=== PATIENT | female | born 2000 | race Caucasian/White ===

== ENCOUNTER 2021-02-05 20:03 | Emergency (ER) | payer OTHER ==
--- OUTSIDE RECORDS SUMMARY | 2021-02-05 20:06 | XMS REPORT | Continuity of Care Document ---
:2000 Author Organization [facility] t Address [address] [place] [address] Care Team Providers Name Role Phone Unavailable Unavailable Unavailable Problems This patient has no known problems. Allergies, Adverse Reactions, Alerts This patient has no known allergies or adverse reactions. Social History Smoking Status Start Date Stop Date Source Former Smoker [facility] Medications Ordered Filled Start Stop Current Ordering Indication Dosage Frequency Signature Comments Components Source Medication Medication Date Date Medication? Clinician (SIG) Name Name Loestrin Fe Loestrin Fe No 1 Q1D Loestrin [place] 1.5/30 1.5/30 Fe 1.5/30 da (28-Day) (28-Day) (28-Day) Epi scop 1.5 mg-30 1.5 mg-30 1.5 mg-30 al mcg (21)/75 mcg (21)/75 mcg H ealth mg (7) mg (7) (21)/75 mg Outre ac tablet Take tablet Take (7) tablet h 1 tablet 1 tablet Take 1 Progr am every day every day tablet by oral by oral every day route. route. by oral route. Vital Signs Vital Name Observation Time Observation Value Comments Source BMI (Body Mass 2020-05-20 00:00:00 31.7 kg/m2 [place] [facility] Index) [facility] BP Systolic 2020-05-20 00:00:00 113 mm[Hg] [place] [facility] Body Weight 2020-05-20 00:00:00 184.6 [lb_av] [place] [facility] BP Diastolic 2020-05-20 00:00:00 72 mm[Hg] [place] [facility] Height 2020-05-20 00:00:00 64 [in_i] [place] [facility] Procedures Procedure Date / Time Performing Clinician Source Performed US, transvaginal 2020-05-20 00:00:00 [facility] Myringotomy and [facility] Insertion of T Tube [facility] Outre a[facility] Tonsillectomy [facility] Plan of Care Planned Activity Planned Date Details Comments Source Diagnostic Test 2020-05-20 CBC w/ auto diff [place] [facility] Pending 00:00:00 [code = CBC w/ auto Health O utreach diff] Program Diagnostic Test 2020-05-20 TSH + free T4, [facility] Pending 00:00:00 serum [code = TSH + Health O utreach free T4, serum] Program Diagnostic Test 2020-05-20 iron + total [facility] Pending 00:00:00 iron-binding Health Outreach capacity (TIBC), Program serum [code = iron + total iron-binding capacity (TIBC), serum] Diagnostic Test 2020-05-20 insulin, serum [facility] Pending 00:00:00 [code = insulin, Health Outr each serum] Program Diagnostic Test 2020-05-20 PT/PTT, plasma [facility] Pending 00:00:00 [code = PT/PTT, Health Outre ach plasma] Program Diagnostic Test 2020-05-20 bacterial vaginosis [place] [facility] Pending 00:00:00 + vaginitis panel, [facility] [place] vaginal [code = Program bacterial vaginosis + vaginitis panel, vaginal] Encounters Start End Encounter Admission Attending Care Care Encounter Source Date/Time Date/Time Type Type Clinicians Facility Department ID 2020-05-20 2020-05-20 Jesusita ROSADO - [id number] [facility] 00:00:00 00:00:[address], [facility] TIER IN: [address] [facility] TRE[facility]URE Roque, MECHANICAL ENGINEERING LECTURER [facility], [facility] [id number] Bárbara valencia , Ph. Results This patient has no known results.
[2021-02-05 21:13] LABS: Absolute Lymphocytes (CBC) 1.8 K/uL (0.7-4.9); Basophils % 0.6 % (0-1.3); Hematocrit 33.5 % (36.0-45.0); MPV 7.9 fL (7.6-11.3); RBC Red Blood Cell Count 4.41 M/uL (3.86-4.86)
[2021-02-05 21:32] LABS: Albumin 4.3 g/dL (3.4-5.0); Bilirubin Direct 0.1 mg/dL (0-0.2); Bilirubin Total 0.4 mg/dL (0.2-1.0); Potassium 3.5 mmol/L (3.5-5.1)
[2021-02-05] MEDS ORDERED: NA CHLORIDE 0.9% 1,000 ML ONE ×2 (22:01→23:07)
[2021-02-05] MEDS ORDERED: PROMETHAZINE INJ 25 MG/ML AMP ONE (22:01)
[2021-02-05] MEDS ORDERED: KETOROLAC 30 MG/ML INJ ONE (22:01)
[2021-02-05 23:02] LABS: Urine Blood Trace-intact (Negative); Urine Glucose Negative (Negative); Urine Protein Negative (Negative); Urine Specific Gravity >=1.030 (1.005-1.030)
[2021-02-05] MEDS ORDERED: METOCLOPRAMIDE 10 MG/2mL INJ ONE (23:06)
[2021-02-05] MEDS ORDERED: DICYCLOMINE HCL 10 MG CAP ONE ×2 (23:53→23:55)
[2021-02-05 23:54] LABS: Urine Specific Gravity/Preg >1.030 (1.005-1.030)
--- NOTE | 2021-02-06 00:20 | EDPHYS ---
Physician Documentation [facility] Name: Delal Mojica Age: 20 yrs Sex: Female : 2000 Arrival Date: 02/05/2021 Time: 20:10 Bed 19 Private MD: ED Physician Anshu Parish HPI: 02/05 23:12 This 20 yrs old Female presents to ER via Wheelchair with complaints of kb Nausea/Vomiting, Abdominal Pain, HAS IBS. 23:12 The patient presents to the emergency department with nausea, vomiting. Onset: The kb symptoms/episode began/occurred 10 month(s) ago, and became worse yesterday. Possible causes: unknown. The symptoms are aggravated by nothing. The symptoms are alleviated by nothing. Associated signs and symptoms: Pertinent positives: abdominal pain, nausea, vomiting. Severity of symptoms: At their worst the symptoms were moderate severe in the emergency department the symptoms are unchanged. The patient has experienced similar episodes in the past, chronically. The patient has been recently seen by a physician: the ER physician, out of Town. PT reports n/v and abd pain since yesterday. States she has had this intermittently for 10 months. Denies abd tenderness. 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 Flu vaccine is not up to date. - Social history:: Smoking status: Reported history of juuling and/or vaping. ROS: 23:11 Abdomen/GI: Positive for abdominal pain, nausea and vomiting, Negative for diarrhea, kb constipation. 23:12 Constitutional: Negative for fever, chills, and weight loss. kb 23:12 All other systems are negative. Exam: 23:11 Constitutional: This is a well developed, well nourished patient who is awake, alert, kb and in no acute distress. Head/Face: Normocephalic, atraumatic. ENT: Moist Mucous membranes Cardiovascular: Regular rate and rhythm with a normal S1 and S2. No gallops, murmurs, or rubs. No pulse deficits. Respiratory: Respirations even and unlabored. No increased work of breathing, no retractions or nasal flaring. Abdomen/GI: Soft, non-tender. No distention Skin: Warm, dry with normal turgor. Normal color. MS/ Extremity: Pulses equal, no cyanosis. Neurovascular intact. Full, normal range of motion. Neuro: Awake and alert, GCS 15, oriented to person, place, time, and situation. Moves all extremities. Normal gait. Psych: Awake, alert, with orientation to person, place and time. Behavior, mood, and affect are within normal limits. Vital Signs: 20:37 BP 104 / 49; Pulse 65; Resp 15 S; Temp 97(TE); Pulse Ox 98% on R/A; Weight 72.57 kg ca1 (R); Height 5 ft. 4 in. (162.56 cm) (R); Pain 10/10; 23:27 BP 99 / 49; Pulse 52; Resp 16; Pulse Ox 99% ; [facility] 02/06 00:14 BP 96 / 55; Pulse 78; Resp 16; Pulse Ox 99% ; [facility] 02/05 20:37 Body Mass Index 27.46 (72.57 kg, 162.56 cm) ca1 MDM: 02/05 20:47 Patient medically screened. kb 23:11 Data reviewed: vital signs, nurses notes. Data interpreted: Pulse oximetry: on room air kb is 98 %. Interpretation: normal. Counseling: I had a detailed discussion with the patient and/or guardian regarding: the historical points, exam findings, and any diagnostic results supporting the discharge/admit diagnosis, lab results, the need for outpatient follow up, a business performance manager, to return to the emergency department if symptoms worsen or persist or if there are any questions or concerns that arise at home. ED course: PT has GI appt tomorrow at 1400. 02/06 00:18 ED course: Pt tolerated po intake and is ready to go home. Will keep appt with GI kb tomorrow. 02/05 20:49 Order name: Basic Metabolic Panel; Complete Time: 21:34 kb 02/05 20:49 Order name: CBC with Diff; Complete Time: 21:18 kb 02/05 20:49 Order name: Hepatic Function; Complete Time: 21:34 kb 02/05 20:49 Order name: Lipase; Complete Time: 21:34 kb 02/05 23:03 Order name: Urine Dipstick-Ancillary; Complete Time: 23:05 EDMS 02/05 23:05 Order name: Urine --Ancillary (enter results); Complete Time: 23:55 mw2 02/05 20:49 Order name: IV Saline Lock; Complete Time: 21:01 kb 02/05 20:49 Order name: Labs collected and sent; Complete Time: 21:01 kb 02/05 20:49 Order name: Urine Dipstick-Ancillary (obtain specimen); Complete Time: 23:16 kb 02/05 20:49 Order name: Urine Test (obtain specimen); Complete Time: 23:16 kb 02/05 23:12 Order name: PO challenge; Complete Time: 23:35 kb Administered Medications: 02/05 21:54 Drug: NS 0.9% 1000 ml Route: IV; Rate: 1000 ml; Site: right forearm; 22:55 Follow up: IV Status: Completed infusion 21:55 Drug: Phenergan (promethazine) 12.5 mg Route: IVP; Site: right forearm; 02/06 00:32 Follow up: Response: No adverse reaction 02/05 21:55 Drug: Ketorolac 15 mg Route: IVP; Site: right forearm; 02/06 00:31 Follow up: Response: No adverse reaction 02/05 22:54 Drug: Reglan (metoCLOPramide) 10 mg Route: IVP; Site: right forearm; 02/06 00:31 Follow up: Response: No adverse reaction 02/05 22:55 Drug: NS 0.9% 1000 ml Route: IV; Rate: 1000 ml; Site: right forearm; 02/06 00:32 Follow up: IV Status: Completed infusion 02/05 23:35 Drug: Bentyl (dicyclomine) 20 mg Route: PO; 02/06 00:31 Follow up: Response: No adverse reaction [facility] Disposition Summary: 02/06/21 00:19 Discharge Ordered Location: Home kb Condition: Stable kb Diagnosis - Nausea with vomiting, unspecified kb Followup: kb - With: Emergency Department - When: As needed - Reason: Worsening of condition Followup: kb - With: Private Physician - When: 2 - 3 days - Reason: Recheck today's complaints, Continuance of care, Re-evaluation by your physician Discharge Instructions: - Discharge Summary Sheet kb - Nausea and Vomiting, Adult, [id number] kb Forms: - Medication Reconciliation Form kb - Thank You Letter kb - Antibiotic Education kb - Prescription Opioid Use kb Prescriptions: - promethazine 25 mg Rectal suppository - insert 1 suppository by RECTAL route every 8 hours As needed; 10 suppository; kb Refills: 0, Product Selection Permitted Addendum: 02/08/2021 15:26 Co-signature as Attending Physician, Anshu Parish MD I agree with the assessment and t w4 plan of care. Signatures: Dispatcher [employer] EDMS Ludmila Mills, MANAGER MEDICARE-C MANAGER MEDICARE-Anshu Nelson MD MD tw4 Areli Swann RN RN ca1 Hank Woo RN RN jm8 Corrections: (The following items were deleted from the chart) 02/05 20:40 20:39 Allergies: No Known Allergies; ca1 ca1 23:12 23:11 Constitutional: Negative for fever, chills, and weight loss, ENT: Negative for kb injury, pain, and discharge, Respiratory: Negative for shortness of breath, cough, wheezing, and pleuritic chest pain, MS/Extremity: Negative for injury and deformity, Skin: Negative for injury, rash, and discoloration, Neuro: Negative for headache, weakness, numbness, tingling, and seizure, Psych: Negative for depression, anxiety, suicide ideation, homicidal ideation, and hallucinations, kb
--- NOTE | 2021-02-06 00:20 | ER ---
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 Been ca1 vomiting since, feels very week, dizzy and feels like passing out. Coronavirus screen: Client denies travel out of the [place] in the last 14 days. diarrhea, nausea, vomiting. Client presents with at least one sign or symptom that may indicate coronavirus-19. Standard/surgical mask placed on the client. Provider contacted for isolation considerations. Ebola Screen: Patient negative for fever greater than or equal to 101.5 degrees Fahrenheit, and additional compatible Ebola Virus Disease symptoms Patient denies exposure to infectious person. Patient denies travel to an Ebola-affected area in the 21 days before illness onset. No symptoms or risks identified at this time. Initial Sepsis Screen: Does the patient meet any 2 criteria? No. Patient's initial sepsis screen is negative. Does the patient have a suspected source of infection? No. Patient's initial sepsis screen is negative. Risk Assessment: Do you want to hurt yourself or someone else? Patient reports no desire to harm self or others. Onset of symptoms was February 05, 2021. 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 Flu vaccine is not up to date. - Social history:: Smoking status: Reported history of juuling and/or vaping. Screenin:03 Abuse screen: Denies threats or abuse. Denies injuries from another. Nutritional jm8 screening: No deficits noted. Tuberculosis screening: No symptoms or risk factors identified. Fall Risk None identified. Assessment: 21:02 General: Appears in no apparent distress. uncomfortable, Behavior is cooperative, jm8 anxious. Pain: Complains of pain in abdomen Pain currently is 10 out of 10 on a pain scale. Quality of pain is described as crampy, Pain began 2-3 days ago. Neuro: No deficits noted. Level of Consciousness is awake, alert, obeys commands, Oriented to person, place, time, situation. Cardiovascular: No deficits noted. Respiratory: No deficits noted. Airway is patent Trachea midline Respiratory effort is even, unlabored, Respiratory pattern is regular, symmetrical. GI: Abdomen is flat, Reports lower abdominal pain, upper abdominal pain, gaseousness, nausea, vomiting. : No deficits noted. No signs and/or symptoms were reported regarding the genitourinary system. EENT: No deficits noted. No signs and/or symptoms were reported regarding the EENT system. Derm: No deficits noted. No signs and/or symptoms reported regarding the dermatologic system. Musculoskeletal: No deficits noted. No signs and/or symptoms reported regarding the musculoskeletal system. Vital Signs: 20:37 BP 104 / 49; Pulse 65; Resp 15 S; Temp 97(TE); Pulse Ox 98% on R/A; Weight 72.57 kg ca1 (R); Height 5 ft. 4 in. (162.56 cm) (R); Pain 10/10; 23:27 BP 99 / 49; Pulse 52; Resp 16; Pulse Ox 99% ; 8 02/06 00:14 BP 96 / 55; Pulse 78; Resp 16; Pulse Ox 99% ; [facility] 02/05 20:37 Body Mass Index 27.46 (72.57 kg, 162.56 cm) ca1 ED Course: 02/05 20:10 Patient arrived in ED. cf2 20:37 Ludmila Mills FNP-C is PHCP. kb 20:37 Anshu Parish MD is Attending Physician. kb 20:39 Triage completed. ca1 20:39 Arm band placed on right wrist. ca1 21:04 Patient has correct armband on for positive identification. Bed in low position. Call Coco light in reach. Side rails up X2. Adult w/ patient. 21:20 Inserted saline lock: 20 gauge in right forearm, using aseptic technique. [facility] 02/06 00:31 No provider procedures requiring assistance completed. IV discontinued, intact, 8 bleeding controlled, No redness/swelling at site. Administered Medications: 02/05 21:54 Drug: NS 0.9% 1000 ml Route: IV; Rate: 1000 ml; Site: right forearm; [facility] 22:55 Follow up: IV Status: Completed infusion 21:55 Drug: Phenergan (promethazine) 12.5 mg Route: IVP; Site: right forearm; 8 02/06 00:32 Follow up: Response: No adverse reaction [facility] 02/05 21:55 Drug: Ketorolac 15 mg Route: IVP; Site: right forearm; 02/06 00:31 Follow up: Response: No adverse reaction 02/05 22:54 Drug: Reglan (metoCLOPramide) 10 mg Route: IVP; Site: right forearm; 02/06 00:31 Follow up: Response: No adverse reaction 02/05 22:55 Drug: NS 0.9% 1000 ml Route: IV; Rate: 1000 ml; Site: right forearm; 8 02/06 00:32 Follow up: IV Status: Completed infusion [facility] 02/05 23:35 Drug: Bentyl (dicyclomine) 20 mg Route: PO; 02/06 00:31 Follow up: Response: No adverse reaction [facility] Outcome: 00:19 Discharge ordered by . regan 00:31 Discharged to home ambulatory, with family. 00:31 Condition: good 00:31 Discharge instructions given to patient, family, Instructed on discharge instructions, follow up and referral plans. medication usage, Demonstrated understanding of instructions, follow-up care, medications, Prescriptions given X 1. 00:32 Patient left the ED. jm8 Signatures: Ludmila Mills FNP-C FNP-Areli Hanson RN RN ca1 Percy Pro cf2 Hank Woo RN RN jm8 Corrections: (The following items were deleted from the chart) 02/05 20:40 20:39 Allergies: No Known Allergies; ca1 ca1
[2021-02-06 01:31] VITALS: TEMP 97
[2021-02-06 01:35] VITALS: O2SAT 99
[2021-02-06 01:38] VITALS: BP 96/55
== END 2021-02-06 00:32 | disposition home or self-care (01) ==
LOC: ER 20:03
DX: R11.2 Nausea with vomiting, unspecified (principal); Z88.8 Allergy status to other drugs, medicaments and biological substances
CPT/HCPCS: 96361; 85025; 80048; 36415; 81025; 80076; 81003; 83690; 96375; 96374; 99283; J2765; J2550; J7030 ×2

== ENCOUNTER 2023-12-07 07:57 | Emergency (ER) | payer SELFPAY ==
--- OUTSIDE RECORDS SUMMARY | 2023-12-07 08:00 | XMS REPORT | Continuity of Care Document ---
Author Name Unknown Address [address] [place] [address] [facility] thconnect Address [address] [place] [address] Care Team Providers Care [employer] Director Name Role Phone Vi Hernandez Primary Care Physician VI HERNANDEZ Attending Clinician Unavailable Shield Attending Clinician Unavailable AALIYAH Attending Clinician Unavailable NANCY DAHL Attending Clinician Unavailable OTTONIEL PARKER Attending Clinician UnavailNEDA Shaw Attending Clinician Unavailable Neda Schafer NP Attending Clinician [phone] THOR OLVERA Attending Clinician Unavail able Jose Enrique Attending Clinician Unavailable STEPHANIE GALLO Attending Clinician Unavailable ELSA WEAVER Attending Clinician Unavailable VICK MOY Attending Clinician Unavailable JAMEEL MATHEWS Attending Clinician Unavaila ble Shield Admitting Clinician Unavailable AALIYAH Admitting Clinician Unavailable Mau_L Admitting Clinician Unavailable Payers Payer Name Policy Type Policy Number Effective Date Expirati on Date Source [facility] [id number] 2020 00:00[facility]00 [facility] [place] (MEDICAID HMO) [id number] 2020 00:00:00 [facility] [id number] 00:00:00 Problems Condition Name Condition Details Condition Category Status Onset Date Resolution Date Last Treatment Date Treating Clinician Comments Source Anxiety Anxiety Problem Active 11-17 00:00: 00 [facility] Outre [facility] Program No known active problems No known active problems Disease [facility] Allergies, Adverse Reactions, Alerts Allergy Name Allergy Type Status Severity Reaction(s) Onset Date Inactive Date Treating Clinician Comments Source Augmenti n Drug Allergy Active 09-02 00:00: 00 [facility] AMOXICIL CHASE-POT CLAVULAN ATE DRUG Active Unknown-Cmnt 2020-08 00:00: 00 [facility] Amoxicil chase-Pot Clavulan ate Propensi ty to adverse reaction s Active Unknown - See comments 2020-08 00:00: 00 [facility] Augmenti n Allergy to substanc e Active [facility] Social History Social Habit Start Date Stop Date Quantity Comments Source Exposure to SARS-CoV-2 (event) Not sure [facility] Sex Assigned At 2000 00:00:00 2000 00:00:00 [facility] Smoking Status Start Date Stop Date Source Never Smoker [facility] Former Smoker [facility] Outreach Program Unknown if ever smoked [facility] Medications Ordered Medication Name Filled Medication Name Start Date Stop Date Current Medication? Ordering Clinician Indication Dosage Frequency Signature (SIG) Comments Components Source doxycycline hyclate 100 mg capsule 2020-08 00:00: 00 08-10 05:59 :00 No [id number] 100mg Take 1 capsule by mouth 2 (two) times daily for 10 days. [facility] hydroxyzine HCl 10 mg tablet TAKE ONE (1) TABLET BY MOUTH THREE TIMES A DAY NEEDED. hydroxyzine HCl 10 mg tablet TAKE ONE (1) TABLET BY MOUTH THREE TIMES A DAY NEEDED. No hydroxyzin e HCl 10 mg tablet TAKE ONE (1) TABLET BY MOUTH THREE TIMES A DAY NEEDED. [facility] Paxil 20 mg tablet Take 1 tablet every day by oral route. Paxil 20 mg tablet Take 1 tablet every day by oral route. No 1 Q1D Paxil 20 mg tablet Take 1 tablet every day by oral route. [facility] dicyclomine 10 mg capsule Take 1 capsule 4 times a day by oral route as needed. dicyclomine 10 mg capsule Take 1 capsule 4 times a day by oral route as needed. No 1capsul e(s) QID dicyclomin e 10 mg capsule Take 1 capsule 4 times a day by oral route as needed. [facility] Prilosec Prilosec No Prilosec [facility] Vital Signs Vital Name Observation Time Observation Value Comments S ource BMI (Body Mass Index) 2023-11-15 00:00:00 27.1 kg/m2 [facility] BP Systolic 2023-11-15 00:00:00 116 mm[Hg] [facility] BP Diastolic 2023-11-15 00:00:00 65 [facility]Hg[facility] Height 2023-11-15 00:00:00 64 [in_i] [facility] Body Weight 2023-11-15 00:00:00 2528 [oz_av] [facility] BP Diastolic 2022-01-06 00:00:00 66 mm[Hg] [facility] Height 2022-01-06 00:00:00 64 [in_i] [facility] BMI (Body Mass Index) 2022-01-06 00:00:00 25.1 kg/m2 [facility] BP Systolic 2022-01-06 00:00:00 127 mm[Hg] [facility] Body Weight 2022-01-06 00:00:00 2336 [oz_av] [facility] BP Diastolic 2021-11-17 00:00:00 57 mm[Hg] [facility] Height 2021-11-17 00:00:00 63.99 [in_i] [facility] BMI (Body Mass Index) 2021-11-17 00:00:00 25.7 kg/m2 [facility] BP Systolic 2021-11-17 00:00:00 95 mm[Hg] [facility] Body Weight 2021-11-17 00:00:00 149.6 [lb_av] [facility] BP Diastolic 2021-10-29 00:00:00 59 mm[Hg] [facility] Height 2021-10-29 00:00:00 64 [in_i] [facility] BMI (Body Mass Index) 2021-10-29 00:00:00 25.6 kg/m2 [facility] BP Systolic 2021-10-29 00:00:00 116 mm[Hg] [facility] Body Weight 2021-10-29 00:00:00 2384 [oz_av] [facility] BP Diastolic 2021-09-10 00:00:00 56 mm[Hg] [facility] Height 2021-09-10 00:00:00 64 [in_i] [facility] BMI (Body Mass Index) 2021-09-10 00:00:00 27.1 kg/m2 [facility] BP Systolic 2021-09-10 00:00:00 101 mm[Hg] [facility] Body Weight 2021-09-10 00:00:00 2528 [oz_av] [facility] Systolic blood pressure 2021-07-30 18:50:00 113 mm[Hg] [facility] Diastolic blood pressure 2021-07-30 18:50:00 69 mm[Hg] [facility] Heart rate 2021-07-30 18:50:00 72 /min [facility] Body temperature 2021-07-30 18:50:00 36.83 [facility] Respiratory rate 2021-07-30 18:50:00 17 /min [facility] Oxygen saturation in Arterial blood by Pulse oximetry 2021-07-30 18:50:00 100 /min [facility] acute hospital BP Diastolic 2021-06-24 00:00:00 65 mm[Hg] [facility] Height 2021-06-24 00:00:00 53 [in_i] [facility] BMI (Body Mass Index) 2021-06-24 00:00:00 39.9 kg/m2 [facility] BP Systolic 2021-06-24 00:00:00 108 mm[Hg] [facility] Body Weight 2021-06-24 00:00:00 2553 [oz_av] [facility] BP Diastolic 2021-05-26 00:00:00 55 mm[Hg] [facility] Height 2021-05-26 00:00:00 53 [in_i] [facility] BMI (Body Mass Index) 2021-05-26 00:00:00 39.6 kg/m2 [facility] BP Systolic 2021-05-26 00:00:00 103 mm[Hg] [facility] Body Weight 2021-05-26 00:00:00 2532 [oz_av] [facility] BP Diastolic 2021-03-26 00:00:00 64 mm[Hg] [facility] Height 2021-03-26 00:00:00 53 [in_i] [facility] BMI (Body Mass Index) 2021-03-26 00:00:00 39.8 kg/m2 [facility] BP Systolic 2021-03-26 00:00:00 108 mm[Hg] [facility] Body Weight 2021-03-26 00:00:00 2544 [oz_av] [facility] BP Diastolic 2021-02-12 00:00:00 73 mm[Hg] [facility] Height 2021-02-12 00:00:00 53 [in_i] [facility] BMI (Body Mass Index) 2021-02-12 00:00:00 38.1 kg/m2 [facility] BP Systolic 2021-02-12 00:00:00 122 mm[Hg] [facility] Body Weight 2021-02-12 00:00:00 2438 [oz_av] [facility] BP Diastolic 2021-02-04 00:00:00 63 mm[Hg] [facility] Height 2021-02-04 00:00:00 53 [in_i] [facility] BMI (Body Mass Index) 2021-02-04 00:00:00 40 kg/m2 [facility] BP Systolic 2021-02-04 00:00:00 123 mm[Hg] [facility] Body Weight 2021-02-04 00:00:00 2560 [oz_av] [facility] BP Diastolic 2020-05-20 00:00:00 72 mm[Hg] [facility] Height 2020-05-20 00:00:00 64 [in_i] [facility] BMI (Body Mass Index) 2020-05-20 00:00:00 31.7 kg/m2 [facility] BP Systolic 2020-05-20 00:00:00 113 mm[Hg] [facility] Body Weight 2020-05-20 00:00:00 184.6 [lb_av] [facility] Procedures Procedure Date / Time Performed Performing Clinician Source XR, hand, 3 or more view 2021-10-29 00:00:00 [facility] POCT TEST 2021-07-30 19:36:00 Neda Schafer [facility] NOTICE OF PRIVACY PRACTICES 2021-07-30 18:38:45 Doctor Unassigned, [place] [facility] CONSENT/REFUSAL FOR DIAGNOSI S AND TREATMENT 2021-07-30 18:38:30 Doctor Unassigned, [place] [facility] Capsule Endoscopy of Small Intestine 2021-02-28 00:00:00 [facility] Colonoscopy 2021-02-10 00:00:00 [facility] Colonoscopy 2021-02-07 00:00:00 [facility] Esophagogastroduodenoscopy 2021-02-07 00:00:00 [facility] US, gallbladder 2021-02-04 [facility], transvaginal 2020-05-20 00:00:00 [facility] Endoscopy 2002-02-07 00:00:00 [facility] Myringotomy and Insertion of T Tube [facility] T[facility]illectomy [facility] Plan of Care Planned Activity Planned Date Details Comments Source Diagnostic Test Pending 2023-11-15 00:00:00 CMP, serum or plasma [code = CMP, serum or plasma] [facility] Diagnostic Test Pending 2023-11-15 00:00:00 lipid panel, serum [code = lipid panel, serum] [facility] Diagnostic Test Pending 2023-11-15 00:00:00 CBC w/ auto diff [code = CBC w/ auto diff] [facility] Diagnostic Test Pending 2023-11-15 00:00:00 TSH, serum or plasma [code = TSH, serum or plasma] [facility] Diagnostic Test Pending 2023-11-15 00:00:00 urinalysis complete, reflex culture [code = urinalysis complete, reflex culture] [facility] Instructions [facility] Encounters Start Date/Time End Date/Time Encounter Type Admission Type Attending Clinicians Care Facility Care Department Encounter ID Source 2023-05-20 14:17:19 [facility] [id number] [facility] 2023-04-28 23:28:21 Inpatient [facility] [id number] [facility] 2023-04-26 10:07:06 [facility] [id number] [facility] 2023-04-21 09:14:39 [facility] [id number] [facility] 2023-04-01 10:48:58 Inpatient [facility] [id number] [facility] 2023-03-30 14:07:40 Inpatient MARIANNA CABRAL [id number] [facility] 2023-03-26 13:00:48 Inpatient MARIANNA CABRAL [id number] [facility] 2023-11-15 11:54:00 2023-11-15 11:54:00 Outpatient VI CARLSON [facility] [id number] [facility] 2023-11-15 00:00:00 2023-11-15 00:00:00 Vi Hernandez, SKIRT MAKER: [address], [address], [place] [address] , Ph. Regino [facility] [id number] [facility] 2023-11-12 00:00:00 2023-11-12 00:00:00 Outpatient LISTER_MELI [facility] [id number] [facility] 2023-11-12 00:00:00 2023-11-12 00:00:00 [facility] [id number] [facility] 2023-03-26 09:59:00 2023-03-26 09:59:00 Outpatient SELF/OTHER INDIVIDUAL ^SELF/OTHE R INDIVIDUAL ^^1^SELF/O THER INDIVIDUAL ^^1 NANCY DAHL [id number] [facility] 2022-06-05 12:39:00 2022-06-05 15:35:00 Emergency ER OTTONIEL PARKER [facility] [id number] [facility] 2022-01-06 11:16:00 2022-01-06 11:16:00 Outpatient Shield [facility] [id number] [facility] 2022-01-06 00:00:00 2022-01-06 00:00:00 Vi Hernandez, SKIRT MAKER: [address], [place] [address] , Ph. [facility] [id number] [facility] 2021-11-17 05:31:00 2021-11-17 05:31:00 Outpatient LISTER_MELI [facility] [id number] [facility] 2021-11-17 00:00:00 2021-11-17 00:00:00 Adolfo Judd MD: [id number], [address], [place] [address] , Ph. [facility] [id number] [facility] 2021-10-31 09:33:00 2021-10-31 09:33:00 Outpatient LISTER_MELI [facility] [id number] [facility] 2021-10-31 09:33:00 2021-10-31 09:33:00 Outpatient LISTER_MELI [facility] [id number] [facility] 2021-10-29 13:57:00 2021-10-29 13:57:00 Outpatient VI [facility]LSON [facility] [id number] [facility] 2021-10-29 02:01:00 2021-10-29 02:01:00 [place] [id number] [facility] 2021-10-29 02:01:00 2021-10-29 02:01:00 [place] [id number] [facility] 2021-10-29 00:00:00 2021-10-29 00:00:00 Vi Hernandez NP: [address], [place] [address] , Ph. [facility] [id number] [facility] 2021-10-24 11:50:00 2021-10-24 11:50:00 [place] [id number] [facility] 2021-09-10 11:54:00 2021-09-10 11:54:00 Outpatient Shield [facility] [id number] [facility] 2021-09-10 00:00:00 2021-09-10 00:00:00 Vi Hernandez, SKIRT MAKER: [address], [place] [address] , Ph. [facility] [id number] [facility] 2021-07-30 12:57:00 2021-07-30 14:58:00 Emergency X NEDA SCHAFER [facility] E[facility] [id number] [facility] 2021-07-30 12:57:00 2021-07-30 14:58:00 Emergency Neda Schafer [facility] [id number] [facility] 2021-06-24 01:29:00 2021-06-24 01:29:00 Outpatient Shield [facility] [id number] [facility] 2021-06-24 00:00:00 2021-06-24 00:00:00 Vi Hernandez, SKIRT MAKER: [address], [place] [address] , Ph. [facility] [id number] [facility] 2021-05-26 01:31:00 2021-05-26 01:31:00 [facility] [id number] [facility] 2021-05-26 00:00:00 2021-05-26 00:00:00 Vi Hernandez, SKIRT MAKER: [address], [place] [address] , Ph. [facility] [id number] [facility] 2021-03-26 11:41:00 2021-03-26 11:41:00 Outpatient Shield MMG MMG [id number] [facility] 2021-03-26 00:00:00 2021-03-26 00:00:00 Vi Hernandez, SKIRT MAKER: [address], [place] [address] , Ph. [facility] [id number] [facility] 2021-02-12 05:42:00 2021-02-12 05:42:00 Outpatient Shield MMG MMG [id number] [facility] 2021-02-12 01:06:00 2021-02-12 01:06:00 Outpatient Shield MMG MMG [id number] [facility] 2021-02-12 00:00:00 2021-02-12 00:00:00 Vi Hernandez, SKIRT MAKER: [address], [place] [address] , Ph. [facility] [id number] [facility] 2021-02-07 11:09:00 2021-02-07 11:09:00 Outpatient Shield MMG MMG [id number] [facility] 2021-02-06 05:32:00 2021-02-06 05:32:00 Outpatient Shield MMG MMG [id number] [facility] 2021-02-04 15:09:00 2021-02-04 18:46:00 Emergency ER THOR OLVERA [facility] [id number] [facility] 2021-02-04 06:11:00 2021-02-04 06:11:00 Outpatient Shield MMG MMG [id number] [facility] 2021-02-04 00:00:00 2021-02-04 00:00:00 Vi Hernandez, SKIRT MAKER: [address], [place] [address] , [facility] [id number] [facility] 2021-01-23 02:57:00 2021-01-23 02:57:00 Outpatient Shield [facility] [id number] [facility] 2020-05-28 05:21:00 2020-05-28 05:21:00 [id number] 2020-05-20 05:07:00 2020-05-20 05:07:00 Outpatient MARIA ISABEL_MAYA [facility] [id number] [facility] 2020-05-20 00:00:00 2020-05-20 00:00:00 Jesusita Dickey, SKIRT MAKER: [address], [place] [address] , Ph. [facility] SHIATSU THERAPIST [id number] [facility] 2017-05-16 18:22:00 2017-05-16 20:25:00 Emergency ER STEPHANIE GALLO [facility] [id number] [facility] 2017-03-07 14:34:00 2017-03-07 18:27:00 Emergency ER ELSA WEAVER [facility] [id number] [facility] 2015-12-24 08:13:00 2015-12-24 10:27:00 Emergency ER VICK MOY [facility] [id number] [facility] 2013-03-30 06:23:00 2013-03-30 06:23:00 Outpatient JAMEEL DORAN [facility] [id number] [facility] Results Test Description Test Time Test Comments Results Result Co mments [id number] [facility]:00:00* Test Item Value Reference Range Interpretation Comme nts quest collection (test code = quest collection) quest [facility] [id number] 00:00:00* Test Item Value Reference Range Interpretation Comme nts quest collection (test code = quest collection) [facility] W Auto Differential panel - [id number] 12:34:00 * Test Item Value Reference Range Interpretation Comme [facility] white blood count (test code = white blood count) 9.9 K/uL 4.0-11.5 red blood count (test code = red blood count) 4.83 M/uL 3.80-5.20 hemoglobin (test code = hemoglobin) 12.0 g/dL 10.5-15.7 hematocrit (test code = hematocrit) 38.0 % 34.0-50.0 MCV [Entitic volume] (test c ode = 77684-4) 78.7 fL 86-100 L mean corpuscular hemoglobin (test code = mean corpuscular hemoglobin) 24.6 pg 26.2-33.4 L mean corpuscular HGB conc (t est code = mean corpuscular HGB conc) 31.3 g/dL 30-34 red cell distribution width (test code = red cell distribution width) 15.8 % 12.0-15.5 H platelet count (test code = platelet count) 326 K/uL 165-450 mean platelet volume (test c ode = mean platelet volume) 10.2 fL 9.4-12.6 Segmented neutrophils/100 leukocytes in Blood (test code = 35044-7) 81.1 % 44.4-80.1 H Immature granulocytes [#/vol ume] in Blood (test code = 01070-9) 0.0 K/uL 0.0-0.03 lymphocyte% (test code = lymphocyte%) 13.5 % 10.0-50.0 mono % (test code = mono %) 3.7 % 3.6-12.0 eos % (test code = eos %) 0.9 % 0.0-5.4 Basophils/100 leukocytes in Unspecified specimen (test code = 85342-6) 0.6 % 0.1-1.2 Band form neutrophils [#/vol ume] in Blood (test code = 32455-2) 8.13 K/uL 1.56-6.13 H Lymphocytes [#/volume] in Unspecified specimen by Automated count (test code = 92853-1) 1.4 K/uL 1.18-3.74 mono # (test code = mono #) 0.37 K/uL 0.24-0.86 eos # (test code = eos #) 0.09 K/uL 0.04-0.36 basophil # (test code = baso esau #) 0.06 K/uL 0.01-0.08 NRBC% (test code = NRBC%) 0 /100 WBC 0-0.2 NRBC# (test code = NRBC#) 0 K/uL [facility] 2000 panel - Serum or Plasma 2021-02-04 12:34:00* Test Item Value Reference Range Interpretation Comme nts Glucose [Mass/volume] in Ser um or Plasma (test code = 2345-7) 116 mg/dL 74-106 H Urea nitrogen [Mass/volume] in Serum or Plasma (test code = 3094-0) 8 mg/dL 6-20 osmolality calculated,serum (test code = osmolality calculated,serum) 273 mOsm/kg 280-300 L creatinine (test code = creatinine) 0.7 mg/dL 0.50-0.90 glomerular filtration rate ( test code = glomerular filtration rate) >60.00 Urea nitrogen/Creatinine [Ma ss Ratio] in Serum or Plasma (test code = 3097-3) 11.4 12-20 L sodium level (test code = so dium level) 137 mmol/L 135-145 potassium level (test code = potassium level) 4.0 mmol/L 3.5-5.2 chloride level (test code = chloride level) 101 mmol/L 98-108 CO2 (test code = CO2) 24 mmol/L 21-32 anion gap (test code = anion gap) 16.0 mEq/L 12-20 calcium level (test code = calcium level) 10.0 mg/dL 8.6-10.0 total protein (test code = t otal protein) 8.1 g/dL 6.6-8.7 albumin (test code = albumin) 5.0 g/dL 3.5-5.2 globulin (test code = globulin) 3.1 gm/dL A/G ratio (test code = A/G ratio) 1.6 >1.0 bilirubin,total (test code = bilirubin,total) 0.4 mg/dL 0.0-1.2 AST/SGOT (test code = AST/SGOT) 15 U/L 15-32 Alanine aminotransferase [Enzymatic activity/volume] in Serum or Plasma (test code = 1742-6) 10 U/L 0-33 Alkaline phosphatase [Enzyma tic activity/volume] in Serum or Plasma (test code = 6768-6) 97 U/L 35-105 [facility] 1996 panel - Serum or [id number] 12:34:00* Test Item Value Reference Range Interpretation Comme nts cholesterol level (test code = cholesterol level) 193 mg/dL 150-200 triglycerides level (test co de = triglycerides level) 71 mg/dL <150 HDL cholesterol (test code = HDL cholesterol) 39 mg/dL >65 L LDL cholesterol direct (test code = LDL cholesterol direct) 143 mg/dL <100 H cholesterol risk ratio (test code = cholesterol risk ratio) 4.948 [facility] W Auto Differential panel - [id number] 12:34:00 * Test Item Value Reference Range Interpretation Comme nts white blood count (test code = white blood count) 9.9 K/uL 4.0-11.5 red blood count (test code = red blood count) 4.83 M/uL 3.80-5.20 hemoglobin (test code = hemoglobin) 12.0 g/dL 10.5-15.7 hematocrit (test code = hematocrit) 38.0 % 34.0-50.0 MCV [Entitic volume] (test c ode = 67254-9) 78.7 fL 86-100 L mean corpuscular hemoglobin (test code = mean corpuscular hemoglobin) 24.6 pg 26.2-33.4 L mean corpuscular HGB conc (t est code = mean corpuscular HGB conc) 31.3 g/dL 30-34 red cell distribution width (test code = red cell distribution width) 15.8 % 12.0-15.5 H platelet count (test code = platelet count) 326 K/uL 165-450 mean platelet volume (test c ode = mean platelet volume) 10.2 fL 9.4-12.6 Segmented neutrophils/100 leukocytes in Blood (test code = 81423-6) 81.1 % 44.4-80.1 H Immature granulocytes [#/vol ume] in Blood (test code = 37406-6) 0.0 K/uL 0.0-0.03 lymphocyte% (test code = lymphocyte%) 13.5 % 10.0-50.0 mono % (test code = mono %) 3.7 % 3.6-12.0 eos % (test code = eos %) 0.9 % 0.0-5.4 Basophils/100 leukocytes in Unspecified specimen (test code = 98474-1) 0.6 % 0.1-1.2 Band form neutrophils [#/vol ume] in Blood (test code = 63383-1) 8.13 K/uL 1.56-6.13 H Lymphocytes [#/volume] in Unspecified specimen by Automated count (test code = 38573-6) 1.4 K/uL 1.18-3.74 mono # (test code = mono #) 0.37 K/uL 0.24-0.86 eos # (test code = eos #) 0.09 K/uL 0.04-0.36 basophil # (test code = baso esau #) 0.06 K/uL 0.01-0.08 NRBC% (test code = NRBC%) 0 /100 WBC 0-0.2 NRBC# (test code = NRBC#) 0 K/uL [facility]Com[facility] 2000 [facility] - Serum or Plasma 2021-02-04 12:34:00* Test Item Value Reference Range Interpretation Comme nts Glucose [Mass/volume] in Ser um or Plasma (test code = 2345-7) 116 mg/dL 74-106 H Urea nitrogen [Mass/volume] in Serum or Plasma (test code = 3094-0) 8 mg/dL 6-20 osmolality calculated,serum (test code = osmolality calculated,serum) 273 mOsm/kg 280-300 L creatinine (test code = creatinine) 0.7 mg/dL 0.50-0.90 glomerular filtration rate ( test code = glomerular filtration rate) >60.00 Urea nitrogen/Creatinine [Ma ss Ratio] in Serum or Plasma (test code = 3097-3) 11.4 12-20 L sodium level (test code = so dium level) 137 mmol/L 135-145 potassium level (test code = potassium level) 4.0 mmol/L 3.5-5.2 chloride level (test code = chloride level) 101 mmol/L 98-108 CO2 (test code = CO2) 24 mmol/L 21-32 anion gap (test code = anion gap) 16.0 mEq/L 12-20 calcium level (test code = calcium level) 10.0 mg/dL 8.6-10.0 total protein (test code = t otal protein) 8.1 g/dL 6.6-8.7 albumin (test code = albumin) 5.0 g/dL 3.5-5.2 globulin (test code = globulin) 3.1 gm/dL A/G ratio (test code = A/G ratio) 1.6 >1.0 bilirubin,total (test code = bilirubin,total) 0.4 mg/dL 0.0-1.2 AST/SGOT (test code = AST/SGOT) 15 U/L 15-32 Alanine aminotransferase [Enzymatic activity/volume] in Serum or Plasma (test code = 1742-6) 10 U/L 0-33 Alkaline phosphatase [Enzyma tic activity/volume] in Serum or Plasma (test code = 6768-6) 97 U/L 35-105 [facility]Lip[facility] 1996 panel - Serum or [id number] 12:34:00* Test Item Value Reference Range Interpretation Comme nts cholesterol level (test code = cholesterol level) 193 mg/dL 150-200 triglycerides level (test co de = triglycerides level) 71 mg/dL <150 HDL cholesterol (test code = HDL cholesterol) 39 mg/dL >65 L LDL cholesterol direct (test code = LDL cholesterol direct) 143 mg/dL <100 H cholesterol risk ratio (test code = cholesterol risk ratio) 4.948 [facility] Centerquest [id number] 00:00:00* Test Item Value Reference Range Interpretation Comme [facility] quest collection (test code = quest collection) quest [facility] CenterDifferential panel, method unspecified - [id number] 00:00:00NeutrophilsBandLymphocyteAtypical LymphMonocyteEosinophilBasophilMetamyelocyteAbs Neutrophil Count (Man)Abs Lymph Count (Man)Abs Monocyte Count (Man)Abs Eosinophil Count (Man)Abs Basophil Count (Man)Platelet EstimatePlatelet MorphologyHypochromasiaPoikilocytosisAnisocytosisMacrocytosisToxic Granulat ionSmudge CellsAdventhealth Rollins Brooka Medical GroupAmylase [Enzymatic activity/volume] in Serum or [id number] 00:00:00* Test Item Value Reference Range Interpretation Comme nts Amylase [Enzymatic activity/ volume] in Serum or Plasma (test code = 1798-8) 91 U/L 28-100 [facility] GroupLipase [Enzymatic activity/volume] in Serum or Plasma 2021-02-04 00:00:00* Test Item Value Reference Range Interpretation Comme nts lipase (test code = lipase) 28 U/L 13-60 [facility] CenterThyrotropin [Units/volume] in Serum or [id number] 00:00:00* Test Item Value Reference Range Interpretation Comme nts Thyrotropin [Units/volume] i n Serum or Plasma (test code = 3016-3) 1.47 uIU/mL 0.36-3.74 [facility] CenterChoriogonadotropin.beta subunit [Units/volume] in Serum or [id number] 00:00:00* Test Item Value Reference Range Interpretation Comme nts HCG quantitative (test code = HCG quantitative) <0.1 0-5 [facility] Centerquest [id number] 00:00:00* Test Item Value Reference Range Interpretation Comme nts quest collection (test code = quest collection) quest [facility] CenterDifferential panel, method unspecified - [id number] 00:00:00NeutrophilsBandLymphocyteAtypical LymphMonocyteEosinophilBasophilMetamyelocyteAbs Neutrophil Count (Man)Abs Lymph Count (Man)Abs Monocyte Count (Man)Abs Eosinophil Count (Man)Abs Basophil Count (Man)Platelet EstimatePlatelet MorphologyHypochromasiaPoikilocytosisAnisocytosisMacrocytosisToxic Granulat ionSmudge CellsAdventhealth Rollins Brooka Medical GroupAmylase [Enzymatic activity/volume] in Serum or [id number] 00:00:00* Test Item Value Reference Range Interpretation Comme nts Amylase [Enzymatic activity/ volume] in Serum or Plasma (test code = 1798-8) 91 U/L 28-100 [facility] CenterLipase [Enzymatic activity/volume] in Serum or Plasma 2021-02-04 00:00:00* Test Item Value Reference Range Interpretation Comme [facility] lipase (test code = lipase) 28 U/L 13-60 [facility] CenterThyrotropin [Units/volume] in Serum or [id number] 00:00:00* Test Item Value Reference Range Interpretation Comme nts Thyrotropin [Units/volume] i n Serum or Plasma (test code = 3016-3) 1.47 uIU/mL 0.36-3.74 [facility] CenterChoriogonadotropin.beta subunit [Units/volume] in Serum or [id number] 00:00:00* Test Item Value Reference Range Interpretation Comme [facility] HCG quantitative (test code = HCG quantitative) <0.1 0-5 [facility]
[2023-12-07] MEDS ORDERED: IPRATROPIUM BROM 0.5MG/2.5ML ONE (08:27)
[2023-12-07] MEDS ORDERED: ALBUTEROL 2.5 MG/3 ML NEB SOL ONE (08:27)
[2023-12-07] MEDS ORDERED: MAGNES/ALUMIN/SIMET 30ML UCUP ONE (08:27)
[2023-12-07] MEDS ORDERED: NA CHLORIDE 0.9% 1,000 ML ONE (08:28)
[2023-12-07] MEDS ORDERED: LIDOCAINE VISCOUS 2% 10ML ORAL SOLN ONE (08:29)
[2023-12-07 08:50] LABS: Absolute Basophils 0.1 K/uL (0-0.5); Absolute Eosinophils 0.3 K/uL (0-0.5); Absolute Lymphocytes (CBC) 1.4 K/uL (0.7-4.9); Absolute Neutrophil 9.2 K/uL (1.8-8.0); Basophils % 0.5 % (0-1.3); Eosinophils % 2.4 % (0-4.4); Hematocrit 39.2 % (36.0-45.0); Hemoglobin 13.4 g/dL (12.0-15.0); Lymphocytes % 11.7 % (15.3-44.8); MCH 30.4 pg (27.0-35.0); MCHC 34.1 g/dL (32.0-36.0); MPV 6.9 fL (7.6-11.3); Monocytes % 8.6 % (3.3-12.3); Neutrophils % 76.8 % (41.7-73.7); Nucleated Red Blood Cells % 0.1 % (0-0); Platelets 242 thou/uL (152-406); RBC Red Blood Cell Count 4.41 M/uL (3.86-4.86); Red Cell Distribution Width 13.5 % (12.1-15.2)
[2023-12-07 09:04] LABS: Anion Gap 3.7 mEq/L (5.0-15.0); Potassium 3.7 mEq/L (3.5-5.1)
--- NOTE | 2023-12-07 09:15 | RAD REPORT ---
EXAM DESCRIPTION: RAD - Chest Single View - 12/07/2023 9:09 am CLINICAL HISTORY: COUGH Chest pain. COMPARISON: No comparisons FINDINGS: Portable technique limits examination quality. The lungs are grossly clear. The heart is normal in size. No displaced fractures. IMPRESSION: No acute intrathoracic process suspected.
--- NOTE | 2023-12-07 09:50 | ER ---
Nurse's Notes [facility] Name: Della Mojica Age: 23 yrs Sex: Female : 2000 Arrival Date: 12/07/2023 Time: 07:57 Bed 4 Private MD: Diagnosis: Viral infection, unspecified Presentation: 12/06 08:12 Chief complaint: Patient states: she has been having body aches, cough, sore throat, ap3 runny nose and fevers for approx 4 days. patient states she has been around people who have been sick. Coronavirus screen: Client presents with at least one sign or symptom that may indicate coronavirus-19. Ebola Screen: No symptoms or risks identified at this time. Initial Sepsis Screen: Does the patient have a suspected source of infection? No. Patient's initial sepsis screen is negative. Risk Assessment: Do you want to hurt yourself or someone else? Patient reports no desire to harm self or others. Onset of symptoms was December 03, 2023. 08:12 Method Of Arrival: Ambulatory ap3 08:18 Initial Sepsis Screen: Does the patient meet any 2 criteria? No. Patient's initial ap3 sepsis screen is negative. 08:18 Acuity: JAYDON 3 ap3 Triage Assessment: 08:14 General: Appears ill, Behavior is calm, cooperative, Reports chills for fever for ap3 feeling ill for fatigue for. Pain: Complains of pain in generalized body aches. EENT: Reports pain when swallowing. Neuro: Level of Consciousness is awake, alert, obeys commands, Oriented to person, place, time, situation, Appropriate for age. Cardiovascular: Patient's skin is warm and dry. Respiratory: Reports cough that is Airway is patent Respiratory effort is even, unlabored, Respiratory pattern is regular, symmetrical. GI: Reports nausea. 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 - Infectious Disease History:: Denies. - Social history:: Smoking status: Reported history of juuling and/or vaping. Screenin:14 Abuse screen: Denies threats or abuse. Nutritional screening: No deficits noted. ap3 Tuberculosis screening: No symptoms or risk factors identified. 08:17 [facility] ED Fall Risk Assessment (Adult) History of falling in the last 3 months, rs5 including since admission No falls in past 3 months (0 pts) Confusion or Disorientation No (0 pts) Intoxicated or Sedated No (0 pts) Impaired Gait No (0 pts) Mobility Assist Device Used No (0 pt) Altered Elimination No (0 pt) Score/Fall Risk Level 0 - 2 = Low Risk Oriented to surroundings, Maintained a safe environment. Assessment: 08:20 General: Appears in no apparent distress. uncomfortable, Behavior is calm, cooperative. rs5 Pain: Pain: Complains of pain in generalized body aches Pain currently is 3 out of 10 on a pain scale. Quality of pain is described as aching, Is continuous. Neuro: Level of Consciousness is awake, alert, obeys commands, Oriented to person, place, time, situation. Cardiovascular: Patient's skin is warm and dry. Rhythm is regular. Respiratory: Reports cough that is Airway is patent Respiratory effort is even, unlabored, Respiratory pattern is regular, symmetrical. GI: Abdomen is round non-distended, Abd is soft and non tender X 4 quads. : No signs and/or symptoms were reported regarding the genitourinary system. EENT: Reports nasal congestion sore throat. redness noted to back of throat. Derm: Skin is intact, Skin is pink, warm \T\ dry. Musculoskeletal: Range of motion: intact in all extremities. 09:03 Reassessment: No changes from previously documented assessment. rs5 10:04 Reassessment: Patient and/or family updated on plan of care and expected duration. Pain rs5 level reassessed. Patient is alert, oriented x 3, equal unlabored respirations, skin warm/dry/pink. Patient states feeling better. Patient states symptoms have improved. Vital Signs: 08:16 BP 133 / 71; Pulse 76; Resp 17; Temp 98.5(O); Pulse Ox 98% ; Weight 68.04 kg; Height 5 ap3 ft. 3 in. ; Pain 8/10; 09:45 BP 112 / 62; Pulse 76; Resp 18; Pulse Ox 99% on R/A; db 10:04 BP 130 / ???; Pulse 74; Resp 17; Pulse Ox 99% on R/A; rs5 08:16 Body Mass Index 26.57 (68.04 kg, 160.02 cm) ap3 08:16 Pain Scale: Adult ap3 ED Course: 07:58 Patient arrived in ED. ec2 07:59 Jose Dale MD is Attending Physician. ec2 08:15 Arm band placed on left wrist. ap3 08:17 Patient has correct armband on for positive identification. Placed in gown. Bed in low rs5 position. Call light in reach. Side rails up X2. 08:18 Triage completed. ap3 08:27 Inserted saline lock: 20 gauge in left antecubital area, using aseptic technique. rs5 08:27 No provider procedures requiring assistance completed. rs5 08:45 Bobby Amaya, PEDRO is Primary Nurse. rs5 09:11 CXR XRAY In Process Unspecified. EDMS 10:05 IV discontinued, intact, bleeding controlled, No redness/swelling at site. Pressure rs5 dressing applied. Administered Medications: 08:30 Drug: DuoNeb Nebulize (3:1) (2.5 mg - 0.5 mg) 3 ml Nebulizer once Route: Nebulizer; rs5 08:54 Follow up: Response: No adverse reaction rs5 08:54 Follow up: Response: No adverse reaction db 08:30 Drug: Viscous Lidocaine Mucous Membrane Liquid (4 %) 10 ml Mucous Membrane once Route: rs5 Mucous Membrane; 08:45 Follow up: Response: No adverse reaction rs5 08:30 Drug: Alum-Mag Hydroxide-Simeth PO Suspension (200 mg-200 mg-20 mg/5 mL) 30 ml PO once rs5 Route: PO; 08:54 Follow up: Response: No adverse reaction rs5 08:30 Drug: NS 0.9% IV 1000 ml IV at 1 bolus Per protocol; 1000 mL bolus Route: IV; Rate: 1 rs5 bolus; Site: right antecubital; 08:45 Follow up: Response: No adverse reaction rs5 09:35 Follow up: IV Status: Completed infusion rs5 Medication: 10:05 VIS not applicable for this client. rs5 Outcome: 09:49 Discharge ordered by . ec2 10:05 Discharged to home ambulatory, rs5 10:05 Condition: stable 10:05 Discharge instructions given to patient, family, Instructed on discharge instructions, follow up and referral plans. medication usage, Demonstrated understanding of instructions, follow-up care, medications, Prescriptions given X 3, 10:06 Patient left the ED. rs5 Signatures: Dispatcher [employer] EDMS Pauline Hernandez RN RN ap3 Hue Bolden RN RN db Bobby Amaya RN RN rs5 Jose Dale MD MD ec2 Corrections: (The following items were deleted from the chart) 10:06 10:04 BP 130 / ???; Pulse 74bpm; Resp 70bpm; Pulse Ox 99% RA; rs5 rs5
--- NOTE | 2023-12-07 09:50 | EDPHYS ---
Physician Documentation [facility] Name: Della Mojica Age: 23 yrs Sex: Female : 2000 Arrival Date: 12/07/2023 Time: 07:57 Bed 4 Private MD: ED Physician Jose Dale HPI: 12/06 08:17 This 23 yrs old Female presents to ER via Ambulatory with complaints of Flu Symptoms. ec2 08:17 Patient arrives today for upper respiratory symptoms. Patient been having several days ec2 of symptoms. Patient had a cough and congestion along with increased throat pain. Has taken tksw-dop-kogofbc medication with some alleviation of symptoms. No issues with vomiting or diarrhea. Patient reports no abdominal pain, difficulty breathing. Reports history of vaping otherwise no significant medical problems.. 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 - Infectious Disease History:: Denies. - Social history:: Smoking status: Reported history of juuling and/or vaping. ROS: 08:17 Constitutional: as per hpi ec2 Exam: 08:17 Constitutional: GEN: NAD Head: atraumatic Eyes: EOMI Ears: External ears are ec2 normal. CV: regular rate LUNGS: no respiratory distress ABD: non-distended SKIN: no evidence of rashes MSK: no evidence of trauma NEURO: moves all extremities equally Vital Signs: 08:16 BP 133 / 71; Pulse 76; Resp 17; Temp 98.5(O); Pulse Ox 98% ; Weight 68.04 kg; Height 5 ap3 ft. 3 in. ; Pain 8/10; 09:45 BP 112 / 62; Pulse 76; Resp 18; Pulse Ox 99% on R/A; db 10:04 BP 130 / ???; Pulse 74; Resp 17; Pulse Ox 99% on R/A; rs5 08:16 Body Mass Index 26.57 (68.04 kg, 160.02 cm) ap3 08:16 Pain Scale: Adult ap3 MDM: 08:10 Patient medically screened. ec2 08:17 Data reviewed: vital signs. ED course: Patient arrives today for upper respiratory ec2 symptoms. Examination remarkable for well-appearing nontoxic dividual with reassuring vital signs. Will obtain lab work, chest x-ray. Evaluating for pneumonia, dehydration, electrolyte disturbances as well as strep throat. Will treat the patient's symptoms and reassess.. 09:10 ED course: Chest x-ray independently reviewed and interpreted by me, shows no acute ec2 intrathoracic process.. 12/06 08:17 Order name: Strep ec2 12/06 08:17 Order name: CBC with Diff; Complete Time: 09:10 ec2 12/06 08:17 Order name: BMP; Complete Time: 09:10 ec2 12/06 08:17 Order name: Influenza Screen (a \T\ B); Complete Time: 09:24 ec2 12/06 08:17 Order name: SARS-COV-2 RT PCR; Complete Time: 09:24 ec2 12/06 09:22 Order name: Throat Culture EDMS 12/06 08:17 Order name: CXR XRAY; Complete Time: 09:16 ec2 Administered Medications: 08:30 Drug: DuoNeb Nebulize (3:1) (2.5 mg - 0.5 mg) 3 ml Nebulizer once Route: Nebulizer; rs5 08:54 Follow up: Response: No adverse reaction rs5 08:54 Follow up: Response: No adverse reaction db 08:30 Drug: Viscous Lidocaine Mucous Membrane Liquid (4 %) 10 ml Mucous Membrane once Route: rs5 Mucous Membrane; 08:45 Follow up: Response: No adverse reaction rs5 08:30 Drug: Alum-Mag Hydroxide-Simeth PO Suspension (200 mg-200 mg-20 mg/5 mL) 30 ml PO once rs5 Route: PO; 08:54 Follow up: Response: No adverse reaction rs5 08:30 Drug: NS 0.9% IV 1000 ml IV at 1 bolus Per protocol; 1000 mL bolus Route: IV; Rate: 1 rs5 bolus; Site: right antecubital; 08:45 Follow up: Response: No adverse reaction rs5 09:35 Follow up: IV Status: Completed infusion rs5 Disposition Summary: 12/07/23 09:49 Discharge Ordered Notes: Location: Home ec2 Condition: Stable ec2 Diagnosis - Viral infection, unspecified ec2 Followup: ec2 - With: Private Physician - When: - Reason: Re-evaluation by your physician Discharge Instructions: - Discharge Summary Sheet ec2 - Viral Illness, Adult ec2 Forms: - Work release form ec2 - Medication Reconciliation Form ec2 - Antibiotic Education ec2 - Prescription Opioid Use ec2 - Patient Portal Instructions ec2 - Leadership Thank You Letter ec2 Prescriptions: - albuterol sulfate 90 mcg/actuation Inhalation HFA Aerosol Inhaler - inhale 2 inhalation INHALATION route every 2 to 4 hours as needed for ec2 bronchospasm; administer via ventilator; 1 unit; Refills: 0, Product Selection Permitted - Tessalon Perles 100 mg Oral Capsule - take 1 capsule ORAL route every 8 hours As needed; 15 capsule; Refills: 0, ec2 Product Selection Permitted - Prednisone 20 mg Oral Tablet - take 2 tablets ORAL route once daily for 5 days; 10 tablet; Refills: 0, Product ec2 Selection Permitted Signatures: Dispatcher [employer] EDPauline Orellana RN RN ap3 Bobby Amaya RN RN rs5 Jose Dale MD MD ec2 Hue Bolden RN db Corrections: (The following items were deleted from the chart) 08:17 08:17 CBC+H.LAB.BRZ ordered. EDMS EDMS 08:17 08:17 BASIC METABOLIC PANEL+C.LAB.BRZ ordered. EDMS EDMS 08:17 08:17 Influenza Screen (A \T\ B)+BA.LAB.BRZ ordered. EDMS EDMS 08:17 08:17 SARS-COV-2 RT PCR+MOL.LAB.BRZ ordered. EDMS EDMS 08:17 08:17 Group A Streptococcus Rapid Sc+BA.LAB.BRZ ordered. EDMS EDMS 08:17 08:17 Chest Single View+RAD.RAD.BRZ ordered. EDMS EDMS
[2023-12-07 10:30] VITALS: BP 112/62; TEMP 98.5; O2SAT 99
== END 2023-12-07 10:06 | disposition home or self-care (01) ==
LOC: ER 07:57
DX: B34.9 Viral infection, unspecified (principal); Z11.52 Encounter for screening for COVID-19
CPT/HCPCS: 36415; 71045; 80048; 85025; 87070; 87081; 87635; 87804; J7030; J7613; J7644

== ENCOUNTER 2024-01-25 14:37 | Emergency (ER) | payer SELFPAY ==
--- OUTSIDE RECORDS SUMMARY | 2024-01-25 14:40 | XMS REPORT | Continuity of Care Document ---
Author Name Unknown Address [address] [facility] [address] [place] [address] [facility] thconnect Address [address] [facility] [address] [place] [address] Care Team Providers Care Shift Supervisor Rn Name Role Phone Vi Hernandez Primary Care Physician [phone] NANCY DAHL Attending Clinician Unavailable VI HERNANDEZ Attending Clinician Unavailable Shield Attending Clinician Unavailable AALIYAH Attending Clinician Unavailable OTTONIEL PARKER Attending Clinician UnavailNEDA Shaw Attending Clinician Unavailable Dayron OIL AND GAS PRINCIPALNeda Attending Clinician [phone] THOR OLVERA Attending Clinician Unavail able Jose Enrique Attending Clinician Unavailable STEPHANIE GALLO Attending Clinician Unavailable ELSA WEAVER Attending Clinician Unavailable CHINMAY, VICK Attending Clinician Unavailable JAMEEL MATHEWS Attending Clinician Unavaila ble Regino Admitting Clinician Unavailable LISTER_MELISSA Admitting Clinician Unavailable Rutledge_L Admitting Clinician Unavailable Payers Payer Name Policy Type Policy Number Effective Date Expirati on Date Source [facility] (MEDICAID HMO) [id number] 2020 00:00:00 [facility] GAYTAN (MEDICAID HMO) [id number] 2020 00:00:00 [facility] [id number] 00:00:00 Problems Condition Name Condition Details Condition Category Status Onset Date Resolution Date Last Treatment Date Treating Clinician Comments Source Anxiety Anxiety Problem Active 11-17 00:00: 00 [place] [facility] No known active problems No known active problems Disease [facility] Allergies, Adverse Reactions, Alerts Allergy Name Allergy Type Status Severity Reaction(s) Onset Date Inactive Date Treating Clinician Comments Source Augmenti n Drug Allergy Active 09-02 00:00: 00 [facility] AMOXICIL CHASE-POT CLAVULAN ATE DRUG Active Unknown-Cmnt 2020-08 00:00: 00 [facility] Amoxicil chase-Pot Clavulan ate Propensi ty to adverse reaction s Active Unknown - See comments 2020-08 00:00: 00 [facility] Augmenti n Allergy to substanc e Active [facility] Social History Social Habit Start Date Stop Date Quantity Comments Source Exposure to SARS-CoV-2 (event) Not sure General acute hospital Sex Assigned At 2001 00:00:00 2000 00:00:00 [facility] Smoking Status Start Date Stop Date Source Never Smoker [facility] Former Smoker [facility] Unknown if ever smoked [facility] Medications Ordered Medication Name Filled Medication Name Start Date Stop Date Current Medication? Ordering Clinician Indication Dosage Frequency Signature (SIG) Comments Components Source doxycycline hyclate 100 mg capsule 2020-08 00:00: 00 08-10 05:59 :00 No [id number] 100mg Take 1 capsule by mouth 2 (two) times daily for 10 days. [facility] hydroxyzine HCl 10 mg tablet TAKE ONE (1) TABLET BY MOUTH THREE TIMES A DAY NEEDED. hydroxyzine HCl 10 mg tablet TAKE ONE (1) TABLET BY MOUTH THREE TIMES A DAY NEEDED. No hydroxyzin e HCl 10 mg tablet TAKE ONE (1) TABLET BY MOUTH THREE TIMES A DAY NEEDED. [facility] Paxil 20 mg tablet Take 1 tablet every day by oral route. Paxil 20 mg tablet Take 1 tablet every day by oral route. No 1 Q1D Paxil 20 mg tablet Take 1 tablet every day by oral route. [facility] dicyclomine 10 mg capsule Take 1 capsule 4 times a day by oral route as needed. dicyclomine 10 mg capsule Take 1 capsule 4 times a day by oral route as needed. No 1capsul e(s) QID dicyclomin e 10 mg capsule Take 1 capsule 4 times a day by oral route as needed. [facility] Prilosec Prilosec No Prilosec [facility] Vital Signs Vital Name Observation Time Observation Value Comments S ource BMI (Body Mass Index) 2023-11-15 00:00:00 27.1 kg/m2 [facility] BP Systolic 2023-11-15 00:00:00 116 mm[Hg] [facility] BP Diastolic 2023-11-15 00:00:00 65 [facility]Hg[facility] Height 2023-11-15 00:00:00 64 [in_i] [facility] Body Weight 2023-11-15 00:00:00 2528 [oz_av] [facility] BP Diastolic 2022-01-06 00:00:00 66 mm[Hg] [facility] Height 2022-01-06 00:00:00 64 [in_i] [facility] BMI (Body Mass Index) 2022-01-06 00:00:00 25.1 kg/m2 [facility] BP Systolic 2022-01-06 00:00:00 127 mm[Hg] [facility] Body Weight 2022-01-06 00:00:00 2336 [oz_av] [facility] BP Diastolic 2021-11-17 00:00:00 57 mm[Hg] [facility] Height 2021-11-17 00:00:00 63.99 [in_i] [facility] BMI (Body Mass Index) 2021-11-17 00:00:00 25.7 kg/m2 [facility] BP Systolic 2021-11-17 00:00:00 95 mm[Hg] [facility] Body Weight 2021-11-17 00:00:00 149.6 [lb_av] [facility] BP Diastolic 2021-10-29 00:00:00 59 mm[Hg] [facility] Height 2021-10-29 00:00:00 64 [in_i] [facility] BMI (Body Mass Index) 2021-10-29 00:00:00 25.6 kg/m2 [facility] BP Systolic 2021-10-29 00:00:00 116 mm[Hg] [facility] Body Weight 2021-10-29 00:00:00 2384 [oz_av] [facility] BP Diastolic 2021-09-10 00:00:00 56 mm[Hg] [facility] Height 2021-09-10 00:00:00 64 [in_i] [facility] BMI (Body Mass Index) 2021-09-10 00:00:00 27.1 kg/m2 [facility] BP Systolic 2021-09-10 00:00:00 101 mm[Hg] [facility] Body Weight 2021-09-10 00:00:00 2528 [oz_av] [facility] Systolic blood pressure 2021-07-30 18:50:00 113 mm[Hg] [facility] Diastolic blood pressure 2021-07-30 18:50:00 69 mm[Hg] [facility] Heart rate 2021-07-30 18:50:00 72 /min Unive [facility] Body temperature 2021-07-30 18:50:00 36.83 Lucille [facility] Respiratory rate 2021-07-30 18:50:00 17 /min [facility] Oxygen saturation in Arterial blood by Pulse oximetry 2021-07-30 18:50:00 100 /min [facility] BP Diastolic 2021-06-24 00:00:00 65 mm[Hg] [facility] Height 2021-06-24 00:00:00 53 [in_i] [facility] BMI (Body Mass Index) 2021-06-24 00:00:00 39.9 kg/m2 [facility] BP Systolic 2021-06-24 00:00:00 108 mm[Hg] [facility] Body Weight 2021-06-24 00:00:00 2553 [oz_av] [facility] BP Diastolic 2021-05-26 00:00:00 55 mm[Hg] [facility] Height 2021-05-26 00:00:00 53 [in_i] [facility] BMI (Body Mass Index) 2021-05-26 00:00:00 39.6 kg/m2 [facility] BP Systolic 2021-05-26 00:00:00 103 mm[Hg] [facility] Body Weight 2021-05-26 00:00:00 2532 [oz_av] [facility] BP Diastolic 2021-03-26 00:00:00 64 mm[Hg] [facility] Height 2021-03-26 00:00:00 53 [in_i] [facility] BMI (Body Mass Index) 2021-03-26 00:00:00 39.8 kg/m2 [facility] BP Systolic 2021-03-26 00:00:00 108 mm[Hg] [facility] Body Weight 2021-03-26 00:00:00 2544 [oz_av] [facility] BP Diastolic 2021-02-12 00:00:00 73 mm[Hg] [facility] Height 2021-02-12 00:00:00 53 [in_i] [facility] BMI (Body Mass Index) 2021-02-12 00:00:00 38.1 kg/m2 [facility] BP Systolic 2021-02-12 00:00:00 122 mm[Hg] [facility] Body Weight 2021-02-12 00:00:00 2438 [oz_av] [facility] BP Diastolic 2021-02-04 00:00:00 63 mm[Hg] [facility] Height 2021-02-04 00:00:00 53 [in_i] [facility] BMI (Body Mass Index) 2021-02-04 00:00:00 40 kg/m2 [facility] BP Systolic 2021-02-04 00:00:00 123 mm[Hg] [facility] Body Weight 2021-02-04 00:00:00 2560 [oz_av] [facility] BP Diastolic 2020-05-20 00:00:00 72 mm[Hg] [facility] Height 2020-05-20 00:00:00 64 [in_i] [facility] BMI (Body Mass Index) 2020-05-20 00:00:00 31.7 kg/m2 [facility] BP Systolic 2020-05-20 00:00:00 113 mm[Hg] [facility] Body Weight 2020-05-20 00:00:00 184.6 [lb_av] [facility] Procedures Procedure Date / Time Performed Performing Clinician Source XR, hand, 3 or more view 2021-10-29 00:00:00 [facility] POCT TEST 2021-07-30 19:36:00 Neda Schafer [facility] NOTICE OF PRIVACY PRACTICES 2021-07-30 18:38:45 Doctor Unassigned, Mart [facility] CONSENT/REFUSAL FOR DIAGNOSI S AND TREATMENT 2021-07-30 18:38:30 Doctor Unassigned, Mart [facility] Capsule Endoscopy of Small Intestine 2021-02-28 00:00[facility]00 [facility] Colonoscopy 2021-02-10 00:00:00 [facility] Colonoscopy 2021-02-07 00:00:00 [facility] Esophagogastroduodenoscopy 2021-02-07 00:00:00 [facility] US, gallbladder 2021-02-04 00:00:00 [facility] US, transvaginal 2020-05-20 00:[facility]00 [facility] Endoscopy 2002-02-07 00:00:00 [facility] Myringotomy and Insertion of T Tube [facility] Plan of Care Planned Activity Planned Date Details Comments Source Diagnostic Test Pending 2023-11-15 00:00:00 CMP, serum or plasma [code = CMP, serum or plasma] [facility] Diagnostic Test Pending 2023-11-15 00:00:00 lipid panel, serum [code = lipid panel, serum] [facility] Diagnostic Test Pending 2023-11-15 00:00:00 CBC w/ auto diff [code = CBC w/ auto diff] [facility] Diagnostic Test Pending 2023-11-15 00:00:00 TSH, serum or plasma [code = TSH, serum or plasma] [facility] Diagnostic Test Pending 2023-11-15 00:00:00 urinalysis complete, reflex culture [code = urinalysis complete, reflex culture] [facility] Instructions [facility] Encounters Start Date/Time End Date/Time Encounter Type Admission Type Attending Clinicians Care Facility Care Department Encounter ID Source 2023-05-20 14:17:19 Inpatient [facility] [id number] [facility] 2023-04-28 23:28:21 [facility] [id number] [facility] 2023-04-26 10:07:06 Inpatient [facility] [id number] [facility] 2023-04-21 09:14:39 Inpatient MARIANNA CABRAL [id number] [facility] 2023-04-01 10:48:58 [facility] [id number] [facility] 2023-03-30 14:07:40 Inpatient MARIANNA CABRAL [id number] [facility] 2023-03-26 13:00:48 Inpatient MARIANNA CABRAL [id number] [facility] 2023-03-26 09:59:00 2024-01-11 12:59:00 Outpatient SELF/OTHER INDIVIDUAL NANCY DAHL [id number] [facility] 2023-11-15 11:54:00 2023-11-15 11:54:00 Outpatient VI [facility]LSON [facility] [id number] [facility] 2023-11-15 00:00:00 2023-11-15 00:00:00 Vi Hernandez, OIL AND GAS PRINCIPAL: [address], [address], [place] [address] , Ph. Regino [facility] [id number] [facility] 2023-11-12 00:00:00 2023-11-12 00:00:00 Outpatient LISTER_MELI [facility] [id number] [facility] 2023-11-12 00:00:00 2023-11-12 00:00:00 Outpatient Shield MMG [facility] [id number] [facility] 2022-06-05 12:39:00 2022-06-05 15:35:00 Emergency ER OTTONIEL PARKER [facility] [id number] [facility] 2022-01-06 11:16:00 2022-01-06 11:16:00 Outpatient Shield MMG [facility] [id number] [facility] 2022-01-06 00:00:00 2022-01-06 00:00:00 Vi Hernandez, OIL AND GAS PRINCIPAL: [address], [place] [address] , Ph. [facility] [id number] [facility] 2021-11-17 05:31:00 2021-11-17 05:31:00 Outpatient LISTER_MELI [facility] [id number] [facility] 2021-11-17 00:00:00 2021-11-17 00:00:00 Adolfo Judd MD: [id number], [address], [place] [address] , Ph. [facility] Yarsanism [facility] [id number] [facility] 2021-10-31 09:33:00 2021-10-31 09:33:00 Outpatient LISTER_MELI [facility] [id number] [facility] 2021-10-31 09:33:00 2021-10-31 09:33:00 Outpatient LISTER_MELI [facility] [id number] [facility] 2021-10-29 13:57:00 2021-10-29 13:57:00 Outpatient VI [facility] [id number] [facility] 2021-10-29 02:01:00 2021-10-29 02:01:00 [facility] [id number] [facility] 2021-10-29 02:01:00 2021-10-29 02:01:00 Outpatient Shield [facility] [id number] [facility] 2021-10-29 00:00:00 2021-10-29 00:00:00 Vi Hernandez, OIL AND GAS PRINCIPAL: [address], [place] [address] , Ph. [facility] [id number] [facility] 2021-10-24 11:50:00 2021-10-24 11:50:00 Outpatient Shield MMG [facility] [id number] [facility] 2021-09-10 11:54:00 2021-09-10 11:54:00 [place] [id number] [facility] Medical [facility] 2021-09-10 00:00:00 2021-09-10 00:00:00 Vi Hernandez, OIL AND GAS PRINCIPAL: [address], [place] [address] , Ph. MMG [facility] [id number] [facility] 2021-07-30 12:57:00 2021-07-30 14:58:00 Emergency X NEDA SCHAFER [facility] ERT [id number] [facility] 2021-07-30 12:57:00 2021-07-30 14:58:00 Emergency Dayron, Neda G [facility] [id number] [facility] 2021-06-24 01:29:00 2021-06-24 01:29:00 [place] [id number] [facility] 2021-06-24 00:00:00 2021-06-24 00:00:00 Vi Hernandez, OIL AND GAS PRINCIPAL: [address], [place] [address] , Ph. MMG [facility] [id number] [facility] 2021-05-26 01:31:00 2021-05-26 01:31:00 [place] [id number] [facility] 2021-05-26 00:00:00 2021-05-26 00:00:00 Vi Hernandez, OIL AND GAS PRINCIPAL: [address], [place] [address] , Ph. MMG [facility] [id number] [facility] 2021-03-26 11:41:00 2021-03-26 11:41:00 [place] [id number] [facility] 2021-03-26 00:00:00 2021-03-26 00:00:00 Vi Hernandez, OIL AND GAS PRINCIPAL: [address] [facility] [address], [place] [address] , Ph. [facility] [id number] [facility] 2021-02-12 05:42:00 2021-02-12 05:42:00 Outpatient Shield MMG MMG [id number] [facility] 2021-02-12 01:06:00 2021-02-12 01:06:00 Outpatient Shield MMG MMG [id number] [facility] 2021-02-12 00:00:00 2021-02-12 00:00:00 Vi Hernandez, OIL AND GAS PRINCIPAL: [address] [facility] [address], [place] [address] , Ph. [facility] [id number] [facility] 2021-02-07 11:09:00 2021-02-07 11:09:00 Outpatient Shield MMG MMG [id number] [facility] 2021-02-06 05:32:00 2021-02-06 05:32:00 Outpatient Shield MMG MMG [id number] [facility] 2021-02-04 15:09:00 2021-02-04 18:46:00 Emergency ER THOR OLVERA [facility] [id number] [facility] 2021-02-04 06:11:00 2021-02-04 06:11:00 Outpatient Shield MMG MMG [id number] [facility] 2021-02-04 00:00:00 2021-02-04 00:00:00 Vi Hernandez, OIL AND GAS PRINCIPAL: [address], [place] [address] , Ph. [facility] [id number] [facility] 2021-01-23 02:57:00 2021-01-23 02:57:00 [facility] [id number] [facility] 2020-05-28 05:21:00 2020-05-28 05:21:00 [facility]au[facility]L [facility] [id number] [facility] 2020-05-20 05:07:00 2020-05-20 05:07:00 Outpatient MARIA ISABEL_MAYA [facility] [id number] [facility] 2020-05-20 00:00:00 2020-05-20 00:00:00 Jesusita Dickey, OIL AND GAS PRINCIPAL: [address], [place] [address] , [facility]. [facility] AC[facility] COORDIN[facility] [id number] [facility] 2017-05-16 18:22:00 2017-05-16 20:25:00 Emergency ER STEPHANIE GALLO [facility] [id number] [facility] 2017-03-07 14:34:00 2017-03-07 18:27:00 Emergency ER ELSA WEAVER [facility] [id number] [facility] 2015-12-24 08:13:00 2015-12-24 10:27:00 Emergency ER VICK MOY [facility] [id number] [facility] 2013-03-30 06:23:00 2013-03-30 06:23:00 Outpatient JAMEEL DORAN [facility] [id number] [facility] Results Test Description Test Time Test Comments Results Result Co mments Source [id number] [facility]:00:00* Test Item Value Reference Range Interpretation Comme nts quest collection (test code = quest collection) [facility] [id number] 00:00:00* Test Item Value Reference Range Interpretation Comme nts quest collection (test code = quest collection) [facility] W Auto Differential panel - [id number] 12:34:00 * Test Item Value Reference Range Interpretation Comme nts white blood count (test code = white blood count) 9.9 K/uL 4.0-11.5 red blood count (test code = red blood count) 4.83 M/uL 3.80-5.20 hemoglobin (test code = hemoglobin) 12.0 g/dL 10.5-15.7 hematocrit (test code = hematocrit) 38.0 % 34.0-50.0 MCV [Entitic volume] (test c ode = 22284-5) 78.7 fL 86-100 L mean corpuscular hemoglobin [...] neutrophils/100 leukocytes in Blood (test code = 19909-8) 81.1 % 44.4-80.1 H Immature granulocytes [#/vol ume] in Blood (test code = 66810-2) 0.0 K/uL 0.0-0.03 lymphocyte% (test code = lymphocyte%) 13.5 % 10.0-50.0 mono % (test code = mono %) 3.7 % 3.6-12.0 eos % (test code = eos %) 0.9 % 0.0-5.4 Basophils/100 leukocytes in Unspecified specimen (test code = 96475-3) 0.6 % 0.1-1.2 Band form neutrophils [#/vol ume] in Blood (test code = 39209-4) 8.13 K/uL 1.56-6.13 H Lymphocytes [#/volume] in Unspecified specimen by Automated count (test code = 12239-9) 1.4 K/uL 1.18-3.74 mono # (test code = mono #) 0.37 K/uL 0.24-0.86 eos # (test code = eos #) 0.09 K/uL 0.04-0.36 basophil # (test code = baso esau #) 0.06 K/uL 0.01-0.08 NRBC% (test code = NRBC%) 0 /100 WBC 0-0.2 NRBC# (test code = NRBC#) 0 K[facility]uL [facility] - Serum [...] (test code = 6768-6) 97 U/L 35-105 [facility] panel - Serum or [id number] 12:34:00* Test Item Value Reference Range Interpretation [...] (test code = cholesterol risk ratio) 4.948 [facility] W Auto Differential panel - [id number] 12:34:00 * Test Item Value Reference Range Interpretation Comme nts white blood count (test code = white blood count) 9.9 K/uL 4.0-11.5 red blood count (test code = red blood count) 4.83 M/uL 3.80-5.20 hemoglobin (test code = hemoglobin) 12.0 g/dL 10.5-15.7 hematocrit (test code = hematocrit) 38.0 % 34.0-50.0 MCV [Entitic volume] (test c ode = 76744-8) 78.7 fL 86-100 L mean corpuscular hemoglobin [...] neutrophils/100 leukocytes in Blood (test code = 26814-7) 81.1 % 44.4-80.1 H Immature granulocytes [#/vol ume] in Blood (test code = 88783-0) 0.0 K/uL 0.0-0.03 lymphocyte% (test code = lymphocyte%) 13.5 % 10.0-50.0 mono % (test code = mono %) 3.7 % 3.6-12.0 eos % (test code = eos %) 0.9 % 0.0-5.4 Basophils/100 leukocytes in Unspecified specimen (test code = 01844-4) 0.6 % 0.1-1.2 Band form neutrophils [#/vol ume] in Blood (test code = 80824-1) 8.13 K/uL 1.56-6.13 H Lymphocytes [#/volume] in Unspecified specimen by Automated count (test code = 18133-3) 1.4 K/uL 1.18-3.74 mono # (test code = mono #) 0.37 K/uL 0.24-0.86 eos # (test code = eos #) 0.09 K/uL 0.04-0.36 basophil # (test code = baso esau #) 0.06 K/uL 0.01-0.08 NRBC% (test code = NRBC%) 0 /100 WBC 0-0.2 NRBC# (test code = NRBC#) 0 K/uL [facility] - Serum [...] (test code = 6768-6) 97 U/L 35-105 [facility] panel - Serum or [id number] 12:34:00* Test Item Value Reference Range Interpretation [...] (test code = cholesterol risk ratio) 4.948 [facility] [id number] 00:00:00* Test Item Value Reference Range Interpretation Comme nts quest collection (test code = quest collection) quest [facility], method unspecified - [id number] 00:00:00NeutrophilsBandLymphocyteAtypical LymphMonocyteEosinophilBasophilMetamyelocyteAbs Neutrophil Count (Man)Abs Lymph Count (Man)Abs Monocyte Count (Man)Abs Eosinophil Count (Man)Abs Basophil Count (Man)Platelet EstimatePlatelet MorphologyHypochromasiaPoikilocytosisAnisocytosisMacrocytosisToxic Granulat ionSmudge CellsPalo Pinto General Hospitala Medical GroupAmylase [Enzymatic activity/volume] in Serum or [id number] 00:00:00* Test Item Value Reference Range Interpretation Comme nts Amylase [Enzymatic activity/ volume] in Serum or Plasma (test code = 1798-8) 91 U/L 28-100 [facility] Group[facility] [Enzymatic activity/volume] in Serum or Plasma 2021-02-04 00:00:00* Test Item Value Reference Range Interpretation Comme nts lipase (test code = lipase) 28 U/L 13-60 [facility] Center[facility] [Units/volume] in Serum or [id number] 00:00:00* Test Item Value Reference Range Interpretation Comme nts Thyrotropin [Units/volume] i n Serum or Plasma (test code = 3016-3) 1.47 uIU/mL 0.36-3.74 [facility] CenterChoriogonadotropin.beta subunit [Units/volume] in Serum or [id number] 00:00:00* Test Item Value Reference Range Interpretation Comme nts HCG quantitative (test code = HCG quantitative) <0.1 0-5 [facility] [id number] 00:00:00* Test Item Value Reference Range Interpretation Comme nts quest collection (test code = quest collection) quest [facility] CenterDifferent[facility], method unspecified - [id number] 00:00:00NeutrophilsBandLymphocyteAtypical LymphMonocyteEosinophilBasophilMetamyelocyteAbs Neutrophil Count (Man)Abs Lymph Count (Man)Abs Monocyte Count (Man)Abs Eosinophil Count (Man)Abs Basophil Count (Man)Platelet EstimatePlatelet MorphologyHypochromasiaPoikilocytosisAnisocytosisMacrocytosisToxic Granulat ionSmudge CellsPalo Pinto General Hospitala Medical GroupAmylase [Enzymatic activity/volume] in Serum or [id number] 00:00:00* Test Item Value Reference Range Interpretation Comme nts Amylase [Enzymatic activity/ volume] in Serum or Plasma (test code = 1798-8) 91 U/L 28-100 [facility] GroupLipase [Enzymatic activity/volume] in Serum or Plasma 2021-02-04 00:00:00* Test Item Value Reference Range Interpretation Comme nts lipase (test code = lipase) 28 U/L 13-60 [facility] CenterThyrotropin [Units/volume] in Serum or [id number] 00:00:00* Test Item Value Reference Range Interpretation Comme nts Thyrotropin [Units/volume] i n Serum or Plasma (test code = 3016-3) 1.47 uIU/mL 0.36-3.74 [facility] CenterChoriogonadotropin.beta subunit [Units/volume] in Serum or [id number] 00:00:00* Test Item Value Reference Range Interpretation Comme nts HCG quantitative (test code = HCG quantitative) <0.1 0-5 [facility]
[2024-01-25] MEDS ORDERED: HYDROCODONE/APAP 5/325 MG TAB ONE (14:51)
--- NOTE | 2024-01-25 14:51 | ER ---
Nurse's Notes [facility] Name: Della Mojiac Age: 23 yrs Sex: Female : 2000 Arrival Date: 01/25/2024 Time: 14:37 Bed DX1 Private MD: Diagnosis: Dental caries, unspecified;Dental pain Presentation: 01/24 14:43 Chief complaint: Patient states: "I've had this tooth pain for 1 year now. My insurance mb9 kicks in next month and I just need something for pain and preventing infection.". Coronavirus screen: At this time, the client does not indicate any symptoms associated with coronavirus-19. Ebola Screen: No symptoms or risks identified at this time. Initial Sepsis Screen: Does the patient meet any 2 criteria? No. Patient's initial sepsis screen is negative. Does the patient have a suspected source of infection? No. Patient's initial sepsis screen is negative. Risk Assessment: Do you want to hurt yourself or someone else? Patient reports no desire to harm self or others. Onset of symptoms was January 25, 2024. 14:43 Acuity: JAYDON 4 mb9 14:43 Method Of Arrival: Ambulatory mb9 Triage Assessment: 14:45 General: Appears uncomfortable, Behavior is calm. Pain: Complains of pain in right side mb9 of mouth. EENT: Oral mucosa is moist. Poor dentition noted. EENT: Reports pain since mouth. Neuro: Vázquez Agitation-Sedation Scale (RASS): 0 - Alert and Calm Level of Consciousness is awake, alert, obeys commands, Oriented to person, place, time, situation, Appropriate for age. Cardiovascular: Patient's skin is warm and dry. Respiratory: Airway is patent Respiratory effort is even, unlabored, Respiratory pattern is regular, symmetrical. GI: No signs and/or symptoms were reported involving the gastrointestinal system. : No signs and/or symptoms were reported regarding the genitourinary system. Derm: Skin is pink, warm \\T\\ dry. Musculoskeletal: Range of motion: intact in all extremities. 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 - Infectious Disease History:: Denies. - Social history:: Smoking status: Patient denies any tobacco usage or history of. Screenin:46 [facility] ED Fall Risk Assessment (Adult) History of falling in the last 3 months, mb9 including since admission No falls in past 3 months (0 pts) Confusion or Disorientation No (0 pts) Intoxicated or Sedated No (0 pts) Impaired Gait No (0 pts) Mobility Assist Device Used No (0 pt) Altered Elimination No (0 pt) Score/Fall Risk Level 0 - 2 = Low Risk Oriented to surroundings, Maintained a safe environment, Educated pt \\T\\ family on fall prevention, incl call for assistance when getting out of bed. Abuse screen: Denies threats or abuse. Nutritional screening: No deficits noted. Tuberculosis screening: No symptoms or risk factors identified. Assessment: 14:47 Reassessment: see triage assessment. mb9 Vital Signs: 14:43 BP 119 / 59; Pulse 79; Resp 18; Temp 97.5; Pulse Ox 100% on R/A; Weight 81.65 kg; mb9 Height 5 ft. 3 in. ; Pain 10/10; 14:43 Body Mass Index 31.89 (81.65 kg, 160.02 cm) mb9 14:43 Pain Scale: Adult mb9 ED Course: 14:39 Patient arrived in ED. mg5 14:41 Arm band placed on. mb9 14:42 Jairo Yip DO is Attending Physician. ms3 14:45 Triage completed. mb9 14:46 Patient has correct armband on for positive identification. Provided Education on: ER mb9 process. 14:46 No provider procedures requiring assistance completed. Patient did not have IV access mb9 during this emergency room visit. 14:50 Carlos Sethi DDS is Referral Physician. ms3 14:51 Ora Rogers RN is Primary Nurse. mb9 Administered Medications: 14:53 Drug: HYDROcodone-acetaminophen PO 5 mg-325 mg 1 tabs PO once Route: PO; mb9 15:04 Follow up: Response: No adverse reaction mb9 Medication: 14:46 VIS not applicable for this client. mb9 Outcome: 14:51 Discharge ordered by . ms3 14:56 Discharged to home ambulatory, with family, marco 14:56 Condition: stable 14:56 Discharge instructions given to patient, family, Instructed on discharge instructions, follow up and referral plans. Demonstrated understanding of instructions, follow-up care, medications, Prescriptions given X 3, 15:04 Patient left the ED. [email or web address] Signatures: Jairo Yip DO DO ms3 Ora Rogers RN RN mb9 Zully Reece mg5
--- NOTE | 2024-01-25 14:51 | EDPHYS ---
Physician Documentation [facility] Name: Della Mojica Age: 23 yrs Sex: Female : 2000 Arrival Date: 01/25/2024 Time: 14:37 Bed DX1 Private MD: ED Physician Jairo Yip HPI: 01/24 14:54 This 23 yrs old Female presents to ER via Ambulatory with complaints of Toothache. ms3 14:54 23-year-old female with past medical history anemia, anxiety, depression presents to [facility] the emergency department for tooth pain. Patient states she has had tooth pain for 1 year. Patient is unable to see dentist due to insurance. Patient states pain is 10/10. Patient denies any alleviating or inciting factors. 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 - Infectious Disease History:: Denies. - Social history:: Smoking status: Patient denies any tobacco usage or history of. ROS: 14:54 Constitutional: Negative for fever, and chills. Neck: Negative for injury, pain, and ms3 swelling, Cardiovascular: Negative for chest pain, and palpitations. Respiratory: Negative for shortness of breath, cough, wheezing, and pleuritic chest pain, 14:54 ENT: Positive for Teeth pain Exam: 14:54 Constitutional: This is a well developed, well nourished patient who is awake, alert, ms3 and in no acute distress. Cardiovascular: Regular rate and rhythm with a normal S1 and S2. No gallops, murmurs, or rubs. Normal PMI, no JVD. No pulse deficits. Respiratory: Lungs have equal breath sounds bilaterally, clear to auscultation and percussion. No rales, rhonchi or wheezes noted. No increased work of breathing, no retractions or nasal flaring. Abdomen/GI: Soft, non-tender, with normal bowel sounds. No distension or tympany. No guarding or rebound. No evidence of tenderness throughout. 14:54 ENT: Mouth: Dental exam: dental caries, that is moderate, specifically in the lower right first molar (#30), Vital Signs: 14:43 BP 119 / 59; Pulse 79; Resp 18; Temp 97.5; Pulse Ox 100% on R/A; Weight 81.65 kg; mb9 Height 5 ft. 3 in. ; Pain 10/10; 14:43 Body Mass Index 31.89 (81.65 kg, 160.02 cm) mb9 14:43 Pain Scale: Adult mb9 MDM: 14:50 Patient medically screened. ms3 14:54 Differential diagnosis: dental caries, gingivitis, gingivostomatitis. Data reviewed: ms3 vital signs, nurses notes, and as a result, I will discharge patient. I considered the following discharge prescriptions or medication management in the emergency department Medications were administered in the Emergency Department. See MAR. Counseling: I had a detailed discussion with the patient and/or guardian regarding the historical points, exam findings, and any diagnostic results supporting the discharge/admit diagnosis, the need for outpatient follow up, to return to the emergency department if symptoms worsen or persist or if there are any questions or concerns that arise at home. Special discussion: I discussed with the patient/guardian in detail that at this point there is no indication for admission to the hospital. It is understood, however, that if the symptoms persist or worsen the patient needs to return immediately for re-evaluation. ED course: Discussed treatment plan with patient. Patient given prescription for clindamycin, Peridex,Tramadol. Patient to follow-up with dentistry in 2 to 3 days. All questions were answered. Return precautions discussed include worsening symptoms, or any other concerns. Administered Medications: 14:53 Drug: HYDROcodone-acetaminophen PO 5 mg-325 mg 1 tabs PO once Route: PO; mb9 15:04 Follow up: Response: No adverse reaction mb9 Disposition Summary: 01/25/24 14:51 Discharge Ordered Notes: Location: Home ms3 Condition: Stable ms3 Diagnosis - Dental caries, unspecified ms3 - Dental pain ms3 Followup: ms3 - With: Carlos Sethi DDS - When: 2 - 3 days - Reason: Recheck today's complaints Discharge Instructions: - Dental Caries, Adult ms3 - Dental Pain ms3 - Discharge Summary Sheet mb9 Forms: - Medication Reconciliation Form ms3 - Antibiotic Education ms3 - Prescription Opioid Use ms3 - Patient Portal Instructions ms3 - Leadership Thank You Letter ms3 - Work release form mb9 Prescriptions: - Peridex 0.12 % Mucous Membrane Mouthwash - swish 15 milliliter MUCOUS MEMBRANE route 3 times per day; 450 milliliter; ms3 Refills: 0, Product Selection Permitted - Clindamycin HCl 300 mg Oral capsule - take 1 capsule ORAL route every 8 hours for 10 days; 30 capsule; Refills: 0, ms3 Product Selection Permitted - Tramadol 50 mg Oral tablet - take 1 tablet ORAL route every 8 hours as needed; 6 tablet; Refills: 0, Product ms3 Selection Permitted Signatures: Jairo Yip DO DO ms3 Ora Rogers RN RN mb9 Corrections: (The following items were deleted from the chart) 15:01 14:54 ED course: Discussed treatment plan with patient. Patient given prescription for ms3 clindamycin, Peridex, ibuprofen. Patient to follow-up with dentistry in 2 to 3 days. All questions were answered. Return precautions discussed include worsening symptoms, or any other concerns. ms3
[2024-01-25 15:22] VITALS: BP 119/59; TEMP 97.5; O2SAT 100
== END 2024-01-25 15:04 | disposition home or self-care (01) ==
LOC: ER 14:37
DX: K02.9 Dental caries, unspecified (principal)